=== PATIENT | female | born 1950 | race Caucasian/White ===

== ENCOUNTER 2022-06-02 13:13 | Emergency (ER) | payer MEDICARE, BC, SELFPAY ==
[2022-06-02 13:25] VITALS: BP 136/90
[2022-06-02 13:32] VITALS: BP 136/90; PULSE 81; RESP 18; TEMP 36.2; O2SAT 95; BMI 22.7
--- NOTE | 2022-06-02 13:50 | ED_ITS ---
HPI - General Adult General Time Seen by Provider: 13:50 Date Seen: 06/02/22 Chief complaint: Cough Stated complaint: Sinus pain +home Covid deidra Time Seen by Provider: 06/02/22 13:37 Source: patient Mode of arrival: ambulatory Limitations: no limitations History of Present Illness HPI narrative: Patient is a 72-year-old female who is generally quite healthy who presents with several-day history of upper respiratory congestion, some facial pressure, occasional light cough, she did a home COVID test was positive today. No shortness of breath, O2 sat is 95% on room air. Patient has no fever but has felt chilled occasionally. She does not feel weak, she is able to take oral fluids and food Related Data Home Medications Medication Instructions Recorded Confirmed atorvastatin .ROUTE 06/02/22 lamotrigine .ROUTE 06/02/22 levothyroxine .ROUTE 06/02/22 venlafaxine PO 06/02/22 Previous Rx's Medication Instructions Recorded prednisone 20 mg tablet 20 mg PO BID #10 tabs 06/02/22 Allergies Allergy/AdvReac Type Severity Reaction Status Date / Time No Known Drug Allergies Allergy Verified 06/02/22 13:30 Review of Systems Status of ROS: Reports: 6 or more systems reviewed and unremarkable except as noted in History and below Exam Narrative: Exam Narrative: Objective: Patient talks in even and nonlabored sentences, noncyanotic, pleasant lady HEENT shows mild maxillary sinus tenderness throat is clear neck is supple pulses regular, good peripheral perfusion noted Neurologic and with a nonfocal Const: Vital Signs, click to edit/add: Vital Signs - 24 hr 06/02/22 13:32 Temperature 97.1 F L Pulse Rate [Right Pulse Oximeter] 81 Respiratory Rate 18 Blood Pressure [Le ft Upper Arm] 136/90 H Pulse Oximetry 95 Oxygen Delivery Me thod Room Air Course Vital Signs Vital signs: Initial Vital Signs Temperature 97.1 F L 06/02/22 13:32 Temperature Source Temporal Artery Scan 06/02/22 13:32 Pulse Rate 81 06/02/22 13:32 Respiratory Rate 18 06/02/22 13:32 Blood Pressure 136/90 H 06/02/22 13:32 Blood Pressure Mean 105 06/02/22 13:32 Blood Pressure Position Sitting 06/02/22 13:32 Pulse Oximetry 95 06/02/22 13:32 Oxygen Delivery Method 06/02/22 13:32 Vital Signs Temperature 97.1 F L 06/02/22 13:32 Pulse Rate 81 06/02/22 13:32 Respiratory Rate 18 06/02/22 13:32 Blood Pressure 136/90 H 06/02/22 13:32 Pulse Oximetry 95 06/02/22 13:32 Oxygen Delivery Method 06/02/22 13:32 Temperature 97.1 F L 06/02/22 13:32 Pulse Rate 81 06/02/22 13:32 Respiratory Rate 18 06/02/22 13:32 Blood Pressure 136/90 H 06/02/22 13:32 Pulse Oximetry 95 06/02/22 13:32 Oxygen Delivery Method 06/02/22 13:32 Medical Decision Making MDM Narrative Medical decision making narrative: Patient has COVID positive test several-day duration, does not appear clinically ill, at this point I suggest suspect her upper respiratory symptoms are more related to COVID then to a sinusitis that might be bacterial. At this point would give her prednisone 50 mg now and then 20 b.i.d. for 4 additional days. She has been generally healthy. Recheck with primary care and update the next 48 hours certainly sooner return to the ED changes concerns worsening. She was comfortable plan will follow up as directed. Discharge Plan Discharge Clinical Impression: COVID Patient Disposition: Home, Self-Care Condition: Stable Additional Instructions: The patient has a cup positive COVID test, has sinus congestion, I would recommend a steroid medication will give her prednisone 50 now, 20 b.i.d. for the next 3 4 days, update her regular doctor next couple of days. At this point she has very minimal symptoms and I think that would be adequate treatment. Activity Level: Light activity Discharge Diet: Regular Prescriptions: New prednisone 20 mg tablet 20 mg PO BID Qty: 10 0RF No Action lamotrigine .ROUTE atorvastatin .ROUTE levothyroxine .ROUTE venlafaxine PO Stand Alone Forms: [email or web address] Info Instructions
[2022-06-02] MEDS: predniSONE 10 MG TABLET 50 MG PO (13:51)
[2022-06-02 14:35] VITALS: RESP 79; O2SAT 96
== END 2022-06-02 14:39 | disposition home or self-care (01) ==
LOC: ED 13:56
PROVIDERS: Emergency Provider Family Medicine
DX: U07.1 COVID-19 (principal); R51.9 Headache, unspecified
CPT/HCPCS: 99283; J7512